=== PATIENT | male | born 2000 | race Hispanic/Latino ===

== ENCOUNTER 2024-09-08 10:11 | Emergency (ER) | payer OTHER, SELFPAY ==
[2024-09-08 10:13] VITALS: BP 158/78; PULSE 57; RESP 14; TEMP 36.1; O2SAT 100; BMI 28.3
--- NOTE | 2024-09-08 10:17 | DI.US.S_ITS ---
PROCEDURE: US SCROTUM INDICATIONS: LEFT TESTICLE PAIN TECHNIQUE: Real-time scanning was performed of the scrotum and testicles, with image documentation. Color and pulse Doppler interrogation was performed of both testicles. COMPARISON: None. FINDINGS: Right: Testicle is normal in size at 4.9 x 3.3 x 2.6 cm, and homogenous in echotexture. Epididymis is normal in overall size and morphology. No hydrocele or varicoceles. Overlying scrotal skin is normal in thickness. Right epididymal cyst measuring 6 mm. Left: Testicle is normal in size at 4.9 x 3.3 x 2.4 cm, and homogeneous in echotexture. Epididymis is normal in overall size and morphology. There is a very prominent varicocele with very slow flow. Overlying scrotal skin is normal in thickness. Left epididymal cyst measuring 2 mm. There is a left hydrocele. Doppler: Color and pulse Doppler demonstrate normal and symmetric arterial flow in both testicles. IMPRESSION: There is a known left varicocele with very slow flow within it. No other significant findings. Comment: Preliminary findings were reported by the privacy director to the referring provider at the time of study completion. Dictated by: Roosevelt Hernandez M.D. on 09/08/2024 at 14:23 Approved by: Roosevelt Hernandez M.D. on 09/08/2024 at 14:26
[2024-09-08 12:33] VITALS: O2SAT 92
[2024-09-08 12:34] VITALS: BP 148/78; PULSE 54; O2SAT 96
--- NOTE | 2024-09-08 12:42 | PC.NURSE ---
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 Denies urinary changes or any discharge. Pain started this morning. C/o 11/26 pain. A&Ox4.
[2024-09-08 13:00] VITALS: PULSE 57; O2SAT 98
--- NOTE | 2024-09-08 13:53 | ED.MALEGU ---
HPI - Male Genitourinary General Chief complaint: Urogenital-Male Stated complaint: testicular pain Time Seen by Provider: 09/08/24 13:35 Mode of arrival: Ambulatory History of Present Illness HPI Narrative: 24-year-old male with a past medical history of varicocele in the left, comes into the ED from home for evaluation of testicular pain states he has been having intermittent testicular pain ongoing persistent for the past year worse with lifting or excessive motion however he states that he woke up had worse pain called his base and was instructed come into the ED for further evaluation treatment. Patient states that the pain has completely resolved without intervention of medication here in the emergency department. He denies any symptoms at this time. States that he did see a urologist when this 1st started and was told his symptoms were secondary to the varicocele. Related Data Previous Rx's Medication Instructions Recorded gabapentin 300 mg capsule 300 mg PO BID #60 caps 03/30/24 meloxicam 7.5 mg tablet 7.5 mg PO DAILY #30 tabs 03/30/24 Allergies Allergy/AdvReac Type Severity Reaction Status Date / Time No Known Drug Allergies Allergy Verified 09/08/24 10:13 Review of Systems Review of Systems Narrative: General: Denies fever, chills, weight loss HEENT: Denies headache, eye drainage, eye irritation, head trauma, sore throat, voice change Cardiovascular: Denies any chest pain, palpitations, shortness of breath, tachycardia Respiratory: Denies any shortness of breath, cough, wheeze, stridor GI/: Positive left-sided testicular pain, Denies any abdominal pain, nausea, vomiting, diarrhea, bright red blood per rectum, melanotic stools, urinary frequency, urinary retention, dysuria, hematuria MSK: Denies any joint pain, muscle pains, swelling Skin: Denies any rashes, lesions, discoloration Neuro: Denies any headache, lightheadedness, dizziness, fainting, weakness Psych: Denies SI/HI Patient History Family History Other Diabetes mellitus Hypertension Social History marital status: unmarried,single Smoking Status: Current some day smoker Tobacco: How many years used: 2 alcohol intake: current caffeine: Yes frequency: 5-6 times per week Smoking Status: Current some day smoker Exam Narrative Exam Narrative: General: Cooperative, comfortable, well-developed, not in acute distress HEENT: Normocephalic, atraumatic, PERRLA, normal sclera, eyelids normal, Neck: Active full range of motion, atraumatic Chest: Normal to inspection, negative crepitus, no overlying erythema ecchymosis Respiratory: Normal respiratory effort, not in acute respiratory distress, clear to auscultation bilaterally negative cough, wheeze, tachypnea, rhonchi, rales Cardiology: Regular rate rhythm negative gallop, murmur, rubs GI/: Normal to inspection, soft, nonrigid, no tenderness to palpation, exam: No overlying erythema ecchymosis or gross deformity to the scrotum, normal cremasteric bilaterally, grossly normal exam MSK: Full range of active range of motion of all 4 extremities, atraumatic Skin: No rashes lesions noted Neuro: Alert awake oriented x3, moves all 4 extremities spontaneously, cranial nerves intact, able to answer all questions appropriately follows commands appropriately Psych: Cooperative, negative suicidal or homicidal ideations Initial Vital Signs Initial Vital Signs: Vital Signs Temperature 97.0 F L 09/08/24 10:13 Pulse Rate 57 L 09/08/24 10:13 Respiratory Rate 14 09/08/24 10:13 Blood Pressure 158/78 H 09/08/24 10:13 Pulse Oximetry 100 09/08/24 10:13 Oxygen Delivery Method Room Air 09/08/24 10:13 Course Orders Ordered: ED Orders 09/08/24 10:17 US scrotum Stat Vital Signs Vital signs: Vital Signs - 8 hr 09/08/24 10:13 09/08/24 12:33 09/08/24 12:34 Temperature 97.0 F L Pulse Rate 57 L Respiratory Rate 14 Blood Pressure 158/78 H 148/78 H Pulse Oximetry 100 92 Oxygen Delivery Method Room Air 09/08/24 12:34 09/08/24 13:00 Temperature Pulse Rate 54 L 57 L Respiratory Rate Blood Pressure Pulse Oximetry 96 98 Oxygen Delivery Method MDM - Male Genitourinary Differential Diagnosis Differential diagnosis: Likely urinary tract infection, epididymitis and other (Varicocele, testicular torsion) Lab Data Labs: Urine Dip Bedside Urine Glucose Negative Bedside Urine Bilirubin - Negative Bedside Urine Ketone - Negative Urine Specific [place] 1.005 Bedside Urine Occult Blood - Negative Bedside Urine pH 7.5 Bedside Urine Protein - Negative Bedside Urine Urobilinogen - Negative Bedside Urine Nitrite - Negative Bedside Urine Leukocytes - Negative Esterase ECG Data Interpretation: 24-year-old male with a history of intermittent testicular pain varicocele presents for worsening left-sided testicular pain started when he woke up. Patient had urinalysis no signs of acute urinary tract infection. Patient had ultrasound testicle that did not show testicular torsion. On exam positive cremasteric reflex, no overlying erythema ecchymosis or gross deformities on exam. Ultrasound showing varicocele which is known, no signs of testicular torsion. Patient was instructed follow up with his urologist and primary care doctor strict return precautions given he verbalized understanding of this and agrees to being discharged home with outpatient follow up Discharge Plan Departure Patient Disposition: Home Clinical Impression: Testicular pain, left, Left varicocele Activity Restrictions/Additional Instructions: Your urologist and your primary care doctor Please read the discharge instructions sheet carefully and bring all papers to all doctor follow-up visits, as it may contain information that your doctor may want to see. Disease processes change and evolve, if your symptoms worsen or if you develop any new symptoms that are concerning to you please return for evaluation. Your evaluation today does not show any evidence of any life-threatening/serious illnesses requiring admission to the hospital or surgery. Please follow-up with your doctor for re-evaluation in approximately 1 day. Seek immediate medical attention for any worrisome symptoms. *If you do not have a primary care provider please contact the [facility] Resource line at [phone]. They will ask some questions about your medical history and help get you set up with a doctor in the community. Prescriptions: No Action meloxicam 7.5 mg tablet 7.5 mg PO DAILY Qty: 30 0RF gabapentin 300 mg capsule 300 mg PO BID Qty: 60 0RF Referrals: ProviderVinayak [Primary Care Provider] - Stand Alone Forms: Patient Portal/API/Survey
[2024-09-08 14:43] VITALS: BP 153/86; PULSE 60; O2SAT 99
== END 2024-09-08 14:47 | disposition home or self-care (01) ==
PROVIDERS: Emergency Provider Student in an Organized Health Care Education/Training Program
DX: N50.812 Left testicular pain (principal); I86.1 Scrotal varices
CPT/HCPCS: 76870; 81003; 93975; 99282; 99284